=== PATIENT | female | born 1975 | race Caucasian/White ===

== ENCOUNTER 2019-05-31 20:44 | Inpatient (IN) | payer OTHER ==
[~2019-05-31] VITALS: Ht 160 cm; Wt 93.4 kg
[~2019-05-31 20:44] MED LIST: ANTIVERT25 MG PO; BAYER CHEWABLE81 MG PO; GABAPENTIN 100100 MG PO; HYDROXYCHLOROQ200 M1 PO; LOPRESSOR25 PO; LOVASTATIN 20 M20 MG PO; NITROGLYCERIN0.4 MG SUBLING; NORCO 5-325 TA1 EACH PO; NORVASC5 MG PO; PLAVIX 75 MG TA75 M1 PO; TYLENOL325 MG PO; VIIBRYD10 MG PO; WELLBUTRIN SR150 MG PO; XANAX 0.5 MG0.5 MG PO
[2019-05-31 20:46] VITALS: BP 156/87
[2019-05-31 21:20] LABS: URINE BILIRUBIN NEGATIVE (Negative); URINE BLOOD 1+ (Negative); URINE CLARITY CLEAR; URINE COLOR YELLOW; URINE GLUCOSE-RANDOM* NEGATIVE (Negative); URINE KETONES NEGATIVE (Negative); URINE LEUKOCYTES-REFLEX TRACE (Negative); URINE NITRITE-REFLEX NEGATIVE (Negative); URINE PROTEIN (DIPSTICK) 2+ (Negative); URINE UROBILINOGEN 0.2 E.U./dl (0.2-1.0)
[2019-05-31 21:21] LABS: BASOPHILS 0.5 % (0.0-2.0); EOSINOPHILS 1.3 % (0.0-3.0); HEMATOCRIT 32.5 % (37.0-47.0); HEMOGLOBIN 10.4 gm/dL (12.0-15.0); LYMPHOCYTES 5.6 % (24.0-44.0); MCHC 31.8 g/dL (28.0-37.0); MCV 97.5 fL (80.0-100.0); PLATELET COUNT 147 thou/uL (150-400); POLYS 85.6 % (36.0-66.0); RBC 3.34 mil/uL (4.20-5.00); RDW 13.4 % (10.5-14.5); WBC 12.8 thou/uL (4.0-11.0)
[2019-05-31 21:30] LABS: SQUAMOUS >10 Many /LPF (0-3)
[2019-05-31 21:31] LABS: BACTERIA-REFLEX 1-9 Few /HPF (None Seen); CRYSTALS None Seen /LPF (None Seen); URINE RBC 0-2 Rare /HPF (0-2); URINE WBC-REFLEX None Seen /HPF (0-5)
[2019-05-31 21:42] LABS: ANION GAP 13 mmol/L (7-16); BUN 62 mg/dL (7-18); CALCIUM 9.4 mg/dL (8.5-10.1); CHLORIDE 107 mmol/L (98-107); CO2 16 mmol/L (21-32); CREATININE 6.1 mg/dL (0.6-1.0); GLUCOSE 114 mg/dL (74-106); POTASSIUM 5.2 mmol/L (3.5-5.1); SODIUM 136 mmol/L (136-145)
[2019-05-31 21:52] LABS: ALBUMIN 2.9 g/dL (3.4-5.0); LIPASE 51 U/L (73-393); SGOT 9 U/L (15-37); SGPT 11 U/L (30-65); TOTAL BILIRUBIN 0.3 mg/dL (<0.1-1.0); TOTAL PROTEIN 7.3 g/dL (6.4-8.2); TROPONIN-I <0.06 ng/mL (<0.06)
[2019-05-31 23:59] LABS: COLOR COLORLESS; SOURCE PERITONEAL; TOTAL VOLUME 3 mL
[2019-06-01] LABS: CLARITY HAZY
[2019-06-01 00:22] LABS: BF NUCLEATED CELLS 1853; BF RBC 1141
[2019-06-01 00:28] VITALS: BP 111/65
[2019-06-01 00:58] LABS: BF MACROPHAGE 2; BF NEUTROPHILS 96
[2019-06-01] MEDS ORDERED: TOPROL XL100 MG PO (00:58)
[2019-06-01] MEDS ORDERED: CHANTIX1 MG PO (01:00)
[2019-06-01] MEDS ORDERED: NEURONTIN100 MG PO (01:00)
[2019-06-01 01:01] VITALS: BP 135/79
[2019-06-01] MEDS ORDERED: WELLBUTRIN XL150 MG PO (01:01)
[2019-06-01 01:12] VITALS: BP 148/83
[2019-06-01] MEDS ORDERED: HYDROCODON-ACE1 EAC7 PO (01:54)
[2019-06-01] MEDS ORDERED: CLONAZEPAM 0.50.5 M1 PO (01:57)
--- NOTE | 2019-06-01 03:50 | NUR ---
Arrived from ER around 0110. Medicated for pain with some relief. IV fluids started. Denies any any nausea or vomiting. Peritoneal dialysis cath in place.Low grade temp.IV fluids infusing. Will continue to monitor.
[2019-06-01 04:19] LABS: HEMATOCRIT 31.5 % (37.0-47.0); MCH 31.6 pg (26.0-34.0); MCHC 31.7 g/dL (28.0-37.0); MCV 99.7 fL (80.0-100.0); RBC 3.16 mil/uL (4.20-5.00); RDW 13.8 % (10.5-14.5); WBC 10.6 thou/uL (4.0-11.0)
[2019-06-01 04:32] LABS: ALBUMIN 2.5 g/dL (3.4-5.0); CALCIUM 8.6 mg/dL (8.5-10.1); CREATININE 5.2 mg/dL (0.6-1.0); TOTAL BILIRUBIN 0.3 mg/dL (<0.1-1.0); TOTAL PROTEIN 6.8 g/dL (6.4-8.2)
[2019-06-01 04:37] LABS: POTASSIUM 6.4 mmol/L (3.5-5.1)
[2019-06-01 04:45] VITALS: BP 112/68
--- NOTE | 2019-06-01 04:45 | NUR ---
DARREL Flores CALLED TO IVELISSE PELAEZ, SHE STATED TO CONTACT RENAL PT NURSE NOTIFIED.
--- NOTE | 2019-06-01 04:55 | NUR ---
Renal consult called to answering service this am and also critical K 6.4 Left a message to answering service , waiting for renal drTarik to call back.
--- NOTE | 2019-06-01 06:28 | NUR ---
Dr. Paul came in to see pt. this am. IV fluids dc'd. He is aware of elevated K level and will put in order.
[2019-06-01 07:31] VITALS: BP 94/54
--- NOTE | 2019-06-01 08:13 | EKG ---
[address] [address] ELECTROCARDIOGRAM REPORT Name: ADAM LABOY Room #: 357-P ADM IN M.R.#: [id number] Admission: 05/31/19 Attend Phys: Gael Painting Discharge: Date of : 77 Report #: [id number] THIS REPORT FOR: //name// 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 : 1975 Requested By: Brian Taylor Order Number: [id number] MD: Brent Powell Measurements Intervals Serafina Rate: 122 P: 36 VT: 122 QRS: 22 QRSD: 78 T: 73 QT: 296 QTc: 422 Interpretive Statements Sinus tachycardia Probable left atrial enlargement Minimal ST depression, lateral leads Compared to ECG 11/22/2013 08:03:20 ST (T wave) deviation now present Sinus rhythm no longer present Myocardial infarct finding no longer present Electronically Signed On 06-01-2019 8:13:44 ACID CONCENTRATOR by Brent Powell [email or web address] <ELECTRONICALLY SIGNED> By: Brent Powell MD 06/01/19 0813 2100 99 Brent Powell MD /EPI
[2019-06-01 08:56] LABS: APTT 35.2 Seconds (24.5-32.8); INR 1.1; PROTIME 11.8 Seconds (9.3-11.4)
[2019-06-01 09:13] LABS: SOURCE ABDOMINAL
[2019-06-01 12:06] LABS: BODY FLUID AMYLASE < 3 U/L (()); BODY FLUID GLUCOSE < 2 mg/dL (()); BODY FLUID PROTEIN < 0.2 g/dL (())
--- NOTE | 2019-06-01 12:14 | NUR ---
INITIAL ASSESSMENT: PRIMO reviewed chart and spoke with nursing and attending physician. Pt was admitted from home due to CKD/sepsis. Pt has done peritoneal dialysis at home in the past. Order for temporary dialysis catheter to be placed and for pt to have dialysis later today or tomorrow. PRIMO met with pt at bedside. Introduced role of SW. Pt is alert/orientated x 4. Pt reports she lives at home with her adult children. Prior to admission, pt was independent with ADLs. No use of DME. Pt has done peritoneal dialysis in the past, but has not had dialysis for the past two months. Pt is connected with the [facility] clinic and sees the renal physician and SKEIN DRIER at the clinic. PRIMO spoke with at the dialysis clinic to provide update. confirms that pt is established with their clinic. PRIMO will fax clinical updates when available. [facility] will need clinical info and discharge orders/summary when pt is discharged home. PRIMO is following to assist as needed with discharge planning.
[2019-06-01 13:09] LABS: TOTAL VOLUME 62 mL
[2019-06-01 13:10] LABS: CLARITY TURBID; COLOR LIGHT YELLOW; SOURCE ABDOMINAL
[2019-06-01 13:33] LABS: BF NUCLEATED CELLS 39227; BF RBC 7808
[2019-06-01 14:22] LABS: BF MACROPHAGE 0; BF NEUTROPHILS 98
--- NOTE | 2019-06-01 18:21 | NUR ---
Assumed care approx. 0700 this AM. Peritoneal dialysis attempted this AM and unsuccessful. Temp dialysis cath placed today which patient has been very emotional about; pt is concerned HD will be permanent and not temporary. Importance of the procedure explained and comfort provided to the patient. Pt will be NPO at midnight to remove PD cath tomorrow per Dr. Mancia. Dr. Mancia said he will do a consultation with the patient in the AM. Friend of the patient at bedside for support. Hemodialysis currently in process. IV abx to start tonight. Pt progressing toward plan of care.
[2019-06-01 19:30] VITALS: BP 110/61
[2019-06-02 04:00] VITALS: BP 107/68
--- NOTE | 2019-06-02 04:23 | NUR ---
Pt. very emotional at times. Emotional support given.Medicated for pain with some relief. Afebrile.No nausea or vomiting. Pt. 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 Kept NPO for PD removal today. Right IJ temporary dialysis cath in place. Ambulated to bathroom with steady gait. Will continue to monitor.
[2019-06-02 05:38] LABS: ALBUMIN 2.5 g/dL (3.4-5.0); CALCIUM 8.9 mg/dL (8.5-10.1); PHOSPHORUS 4.6 mg/dL (2.5-4.9)
[2019-06-02 07:15] VITALS: BP 110/63
[2019-06-02 08:07] LABS: HEP B SURFACE Ab(ANTI-HBS Reactive (()); HEPATITIS B SURFACE AG Negative (Negative)
[2019-06-02 09:11] LABS: SOURCE ABDOMINAL
--- NOTE | 2019-06-02 14:39 | NUR ---
SW reviewed chart and spoke with nursing and attending physician. Pt had temporary dialysis catheter placed yesterday and had dialysis. Pt's PD catheter to be removed today. PRIMO is following to assist as needed with discharge planning.
--- NOTE | 2019-06-02 15:07 | PATH ---
[facility] [address] [place] [address] PATHOLOGY RPT PROCEDURE Name: ADAM LABOY Room #: 357-P ADM IN M.R.#: [id number] Admission: 05/31/19 Date of : 77 Discharge: Report #: [id number] Path Case #: [id number] Note [facility] Accession Number: [id number] TESTS RESULT FLAG UNITS REF RANGE LAB Clinician Provided Cytology Information No. of containers..01 Other (Miscellaneous) Source: 01 ABDOMINAL FLUID DIAGNOSIS: 02 ABDOMINAL FLUID NEGATIVE FOR MALIGNANT CELLS. REACTIVE MESOTHELIAL CELLS ARE PRESENT. THIS INTERPRETATION INCLUDES EVALUATION OF A CELL BLOCK. MARKED ACUTE INFLAMMATION CONSISTENT WITH AN EXUDATE. Pathologist ICD10: 02 N18.9 Signed out by: 02 Delia Joseph MD, Pathologist NPI- [id number] Performed by: Tawana Arambula Program Attendant ([facility]) Gross description: 01 25ML, YELLOW, CLOUDY /LCS 06/30/1840 0000 Local FLAG LEGEND: L-Low Normal,H-High Normal,LL-Alert Low,HH-Alert High <-Panic Low,>-Panic High,A-Abnormal,AA-Critical Abnormal Performed at: [address] [place] [address] Kiran Jimenes MD, [address] [address] Delia Joseph MD, Specimen Comment: A courtesy copy of this report has been sent to [phone] Specimen Comment: Report sent to Performed at: [address], [place], [place] [id number] MD Kiran Jimenes MD Phone: [phone]
[2019-06-02 15:11] VITALS: BP 128/81
--- NOTE | 2019-06-02 16:16 | NUR ---
ASSUMED CARE OF PT AT 0700. PT AOX4 IN NO ACUTE DISTRESS. C/O PAIN TO LLQ - WELL CONTROLLED WITH CURRENT MED REGIMEN. NPO FOR PERIOTENEAL CATH REMOVAL THIS AFTERNOON - SITE DRESSED. UP AD WANDY W/ STEADY GAIT. VITALS STABLE. CALLS OUT APPROPRIATELY. PT PROGRESSING TOWARD POC GOALS.
[2019-06-02 20:11] VITALS: BP 127/78
[2019-06-03 04:18] VITALS: BP 141/80
--- NOTE | 2019-06-03 04:18 | NUR ---
Pt. slept well during the night. Medicated for pain with good relief and verbalized it is not excruciating as it was before. Left PD site covered with gauze and transparent dressing. Afebrile. Up ad ib in room with steady gait. Denies any concern at this time. Making progress towards care plan goals.
[2019-06-03 06:03] LABS: HEMATOCRIT 26.9 % (37.0-47.0); HEMOGLOBIN 8.8 gm/dL (12.0-15.0); MCH 31.6 pg (26.0-34.0); MCHC 32.7 g/dL (28.0-37.0); MCV 96.6 fL (80.0-100.0); RBC 2.78 mil/uL (4.20-5.00); RDW 13.2 % (10.5-14.5); WBC 4.9 thou/uL (4.0-11.0)
[2019-06-03 06:28] LABS: ALBUMIN 2.4 g/dL (3.4-5.0); CALCIUM 9.5 mg/dL (8.5-10.1); POTASSIUM 4.8 mmol/L (3.5-5.1); TOTAL BILIRUBIN 0.2 mg/dL (<0.1-1.0); TOTAL PROTEIN 6.8 g/dL (6.4-8.2)
[2019-06-03 07:22] VITALS: BP 135/81
--- NOTE | 2019-06-03 16:26 | NUR ---
PRIMO reviewed chart and spoke with nursing and attending physician. Pt to have tunneled dialysis catheter placed and will need outpatient hemodialysis. PRIMO spoke with Blaire at the [facility] to provide update. Per Blaire, they are able to accept pt to their clinic. Pt had chosen to stop dialysis about two months ago. Pt's PD catheter was removed yesterday. [place] does dialysis M-W-F. PRIMO met with pt at bedside to discuss outpt hemodialysis. Pt is agreeable with plan. Pt does work several jobs. PRIMO discussed possible schedule and location. Pt would like to use the [place] location and is aware that it will be M-W-F. No preference of time. PRIMO faxed clinical info to central intake at [facility] for review. PRIMO is following to assist as needed with discharge planning.
--- NOTE | 2019-06-03 17:21 | NUR ---
PT CARE ASSUMED APPROX 0700. ASSESSMENT CHARTED. PT DENIES SOA. REPORTS ADEQUATE PAIN MANAGEMENT OF INTERMITTENT ABD PAIN. VSS. UP WITH STEADY GAIT. TOELRATING POC. DENIES QUESTIONS OR CONCERNS REGARDING POC. TOLERATED HD. WOUND CARE TO LEFT ABD DONE PER ORDER. NO DISTRESS NOTED.
[2019-06-04 04:10] VITALS: BP 127/77
--- NOTE | 2019-06-04 04:15 | NUR ---
ASSUMED CARE OF PT AT 1900. A&Ox4, SAD AND DISTRESSED ABOUT WORK. C/O ABD PAIN 1X, STATED IT WAS MORE AFTER ABDOMINAL DRESSING CHANGE COMPLETED DURING THE DAY. PAIN MEDS GIVEN 1X THUS FAR, PT ABLE TO SLEEP. C/P NAUSEA 1X, ZOFRAN GIVEN, ABLE TO SLEEP. ABD DRESSING HAS BEEN C/D/I, NO DRAINAGE OBSERVED. STEADY GAIT, UP TO BR AD WANDY. PROGRESSING TOWARDS POC GOALS.
[2019-06-04 07:21] VITALS: BP 140/96
[2019-06-04 14:11] LABS: BODY FLUID ALBUMIN 1.3 g/dL (Not Estab.); BODY FLUID AMYLASE 8 U/L (()); BODY FLUID GLUCOSE 25 mg/dL (()); BODY FLUID LDH 560 IU/L (()); BODY FLUID PROTEIN 2.5 g/dL (())
[2019-06-04 15:23] VITALS: BP 150/91
--- NOTE | 2019-06-04 15:43 | NUR ---
SW reviewed chart and spoke with nursing and attending physician. Pt to have tunneled dialysis catheter placed tomorrow. SW spoke with central intake at [facility] to establish pt's outpatient dialysis schedule. Info received and in process. Hep B labs ordered to send to intake when available. Awaiting chair time when finalized. SW is following to assist as needed with discharge planning.
--- NOTE | 2019-06-04 18:36 | NUR ---
Patient has been in a lot of pain through the day and pain is somewhat controlled by meds. she does seem depressed sometimes. spent time in room talking to patient. it did help. went and had dialysis cath placed. tolerated well. wound dressing to RLQ changed. will cont with plan of care.
[2019-06-04 19:09] VITALS: BP 129/84
[2019-06-05 04:05] VITALS: BP 139/81
[2019-06-05 07:07] VITALS: BP 114/83
--- NOTE | 2019-06-05 07:50 | NUR ---
ASSUMED CARE AT 1900, ASSESSMENT COMPLETED. PT C/O HIGH LEVEL OF PAIN IN ABD AND AT LEFT CHEST TESSEO SITE; GAVE OXY TWICE OVERNIGHT, PT DID NOT ASK FOR ANY IV PAIN MEDS. PT DENIED NAUSEA OR SOB, SLEPT WELL OVERNIGHT. DIALYSIS THIS AM, THEN PLANNED D/C HOME TODAY. NO OTHER CONCERNS, SHIFT REPORT GIVEN AT 0700.
--- NOTE | 2019-06-05 14:20 | NUR ---
DISCHARGE PLANNING. DISCHARGE TO HOME WITH OUTPATIENT DIALYSIS AND IV ABX INFUSION. PATIENT REFERRAL FAXED TO [facility]. UNIT SW AWARE. FOLLOWING.
[2019-06-05] MEDS ORDERED: UNASYN 3 GM VIAL3 G1 IV (14:37)
--- NOTE | 2019-06-05 14:43 | NUR ---
DISCHARGE NOTE: PRIMO reviewed chart and spoke with nursing and attending physician. Pt is medically stable for discharge home today. Pt had dialysis earlier today. Pt will need home IV Abx: unasyn 3gm daily for 7 days. PRIMO met with pt at bedside to discuss discharge plan. Pt states she has done home infusion in the past, but unable to recall name of provider. SW discussed need for home IV abx for 7 days. Pt is agreeable with plan and no preference voiced of provider. PRIMO spoke with Raegan in intake at [facility] who confirmed that pt's chair time is M-W-F at 1400. Pt will need to arrive at 1330 on her first dialysis on Saturday, 06/08 to do intake paperwork. c4 planner faxed info to [facility] for review. PRIMO contacted [facility] liaison who will meet with pt. Insurance coverage to be verified. Discharge orders completed. Contact info for [facility] and new dialysis schedule placed in pt's discharge summary. Pt will have transportation home when discharged. PRIMO is following to finalize discharge.
[2019-06-05 14:48] VITALS: BP 114/83
[2019-06-05 15:22] VITALS: BP 140/88
--- NOTE | 2019-06-05 17:49 | NUR ---
ASSUMED PATIENT CARE AT 0700. A/O . TOLERATED HD. DC TO HOME MOW.
--- NOTE | 2019-06-07 08:35 | HC ---
[facility] [place] [address] CONSULTATION Name: ADAM LABOY Room #: 357-P [facility] IN M.R.#: [id number] Admission: 05/31/19 Attend Phys: Celestine Felix MD Discharge: 06/05/19 Date of : 77 Report #: [id number] THIS REPORT FOR: //name// CC: Natasha Painting REASON FOR CONSULTATION: End-stage renal disease. REASON FOR PRESENTATION: Abdominal pain. HISTORY OF PRESENT ILLNESS: This is a 43-year-old with past medical history of end-stage renal disease, was maintained on peritoneal dialysis. She is also known to have diabetes mellitus and hypertension, coronary artery disease with a stent to the LAD. Her end-stage renal disease was proven to be due to sarcoidosis. She was followed by [facility]. She had stopped peritoneal dialysis based on her Nephrology recommendation as stated. She has not used her catheter for the last 2 months. She presented to the Emergency Room complaining that she is having abdominal pain with drainage from around the PD catheter. She also reported to nausea and occasional vomiting. She had no fever. Laboratory values were consistent with hyperkalemia and elevated creatinine with an estimated GFR of around 8. Initial PD fluids were consistent with what seems to be peritonitis for which the patient was admitted. PAST MEDICAL HISTORY: 1. Coronary artery disease. 2. Hypertension. 3. End-stage renal disease. 4. Peritoneal dialysis catheter insertion. 5. Sarcoidosis. 6. Post-kidney biopsy. ALLERGIES: None. MEDICATIONS: 1. Gabapentin. 2. Amlodipine. 3. Aspirin. 4. Metoprolol. SOCIAL HISTORY: Current every day smoker. She denies drug or alcohol abuse. REVIEW OF SYSTEMS: CONSTITUTIONAL: Significant for fever and occasional chills. CARDIOVASCULAR: No chest pain or palpitation. PULMONARY: No cough or hemoptysis. GASTROINTESTINAL: As per the history of present illness. GENITOURINARY: No frequency, no urgency. [facility] [place] [address] [place] [address] CONSULTATION Name: ADAM LBAOY Room #: 357-[facility].#: [id number] Admission: 05/31/19 Attend Phys: Celestine Felix MD Discharge: 06/05/19 Date of : 77 Report #: [id number] NEUROLOGICAL: No weakness, no seizure. HEMATOLOGICAL: No easy bruisability. No epistaxis. PHYSICAL EXAMINATION: GENERAL: She is alert, oriented, in no apparent distress. VITAL SIGNS: Blood pressure was 111/65. HEAD AND NECK: No jugular venous distention. CHEST: No crackles. CARDIOVASCULAR: No rub detected. ABDOMEN: Soft with slight tenderness. PD catheter in place. LOWER EXTREMITIES: No edema. LABORATORY VALUES: Reviewed. Sodium is 136, potassium is 5.2, chloride is 107, carbon dioxide of 16, BUN is 62, creatinine is 6.1. White blood cell count is 12.8. IMPRESSION AND PLAN: 1. Peritonitis in a patient who is maintained on peritoneal dialysis. Unfortunately, the patient's catheter has not been functioning and not being utilized for the last 2 months. We attempted to use this catheter to initiate intraperitoneal antibiotic; however, this has not succeeded. This was discussed with the patient. She was empirically covered with systemic antibiotics. The patient will need to be converted to hemodialysis. We will ask general surgeon to remove the peritoneal dialysis catheter. 2. Discussed with the patient that her current kidney function tests would not allow her to stay off dialysis and she will need to be permanently on dialysis. <ELECTRONICALLY SIGNED> By: Jhonatan Ortiz MD 06/07/19 0835 1304 2059 Jhonatan Ortiz MD /nt
== END 2019-06-05 17:49 | disposition home or self-care (01) | DRG 919 ==
LOC: ER 20:44 → EROBS 22:20 → 3W 22:20 → ENTRNSPT 06-05 17:44 → 3W 06-05 17:49
PROVIDERS: Emergency Medicine; Hospitalist; Nurse Practitioner; ADMIT Internal Medicine
PROC: 3E1M38Z Irrigation of Peritoneal Cavity using Irrigating Substance, Percutaneous Approach (ICD-10-PCS; principal; 2019-05-31)
PROC: 02HV33Z Insertion of Infusion Device into Superior Vena Cava, Percutaneous Approach (ICD-10-PCS; 2019-06-01)
PROC: 0W9G3ZZ Drainage of Peritoneal Cavity, Percutaneous Approach (ICD-10-PCS; 2019-06-01)
PROC: 3E1M39Z Irrigation of Peritoneal Cavity using Dialysate, Percutaneous Approach (ICD-10-PCS; 2019-06-01)
PROC: B548ZZA Ultrasonography of Superior Vena Cava, Guidance (ICD-10-PCS; 2019-06-01)
PROC: B5181ZA Fluoroscopy of Superior Vena Cava using Low Osmolar Contrast, Guidance (ICD-10-PCS; 2019-06-01)
PROC: 0WPGX3Z Removal of Infusion Device from Peritoneal Cavity, External Approach (ICD-10-PCS; 2019-06-02)
PROC: 0JH63XZ Insertion of Tunneled Vascular Access Device into Chest Subcutaneous Tissue and Fascia, Percutaneous Approach (ICD-10-PCS; 2019-06-04)
PROC: 02H633Z Insertion of Infusion Device into Right Atrium, Percutaneous Approach (ICD-10-PCS; 2019-06-04)
PROC: B548ZZA Ultrasonography of Superior Vena Cava, Guidance (ICD-10-PCS; 2019-06-04)
PROC: B5181ZA Fluoroscopy of Superior Vena Cava using Low Osmolar Contrast, Guidance (ICD-10-PCS; 2019-06-04)
PROC: 5A1D70Z Performance of Urinary Filtration, Intermittent, Less than 6 Hours Per Day (ICD-10-PCS; 2019-06-05)
DX: T85.71XA Infection and inflammatory reaction due to peritoneal dialysis catheter, initial encounter (principal); K65.2 Spontaneous bacterial peritonitis; N18.6 End stage renal disease; A41.1 Sepsis due to other specified staphylococcus; A41.81 Sepsis due to Enterococcus; N17.9 Acute kidney failure, unspecified; I12.0 Hypertensive chronic kidney disease with stage 5 chronic kidney disease or end stage renal disease; T85.611A Breakdown (mechanical) of intraperitoneal dialysis catheter, initial encounter; D64.9 Anemia, unspecified; I25.10 Atherosclerotic heart disease of native coronary artery without angina pectoris; F17.210 Nicotine dependence, cigarettes, uncomplicated; E87.5 Hyperkalemia; D86.9 Sarcoidosis, unspecified; F41.1 Generalized anxiety disorder; F32.9 Major depressive disorder, single episode, unspecified; Y84.1 Kidney dialysis as the cause of abnormal reaction of the patient, or of later complication, without mention of misadventure at the time of the procedure; B95.2 Enterococcus as the cause of diseases classified elsewhere; B95.7 Other staphylococcus as the cause of diseases classified elsewhere; E66.01 Morbid (severe) obesity due to excess calories; Z95.5 Presence of coronary angioplasty implant and graft; Y92.098 Other place in other non-institutional residence as the place of occurrence of the external cause; Z79.82 Long term (current) use of aspirin; Z79.899 Other long term (current) drug therapy; Z23 Encounter for immunization; Z99.2 Dependence on renal dialysis
CPT/HCPCS: 10879; 32100; 33000; 50010; 50101; 50386; 50403; 51412; 56525; 62110; 62900; 70005

== ENCOUNTER → 2019-06-09 | Outpatient (CLI) | payer OTHER ==
[~2019-06-09] MED LIST changes: +CHANTIX1 MG PO; +CLONAZEPAM 0.50.5 M1 PO; +HYDROCODON-ACE1 EAC7 PO; +NEURONTIN100 MG PO; +TOPROL XL100 MG PO; +UNASYN 3 GM VIAL3 G1 IV; +WELLBUTRIN XL150 MG PO
[2019-06-09 10:38] VITALS: BP 144/93
[2019-06-09 11:13] LABS: HEMATOCRIT 31.5 % (37.0-47.0); HEMOGLOBIN 10.2 gm/dL (12.0-15.0); MCHC 32.3 g/dL (28.0-37.0); RBC 3.28 mil/uL (4.20-5.00); RDW 13.2 % (10.5-14.5); WBC 8.2 thou/uL (4.0-11.0)
[2019-06-09 11:28] LABS: ALBUMIN 2.8 g/dL (3.4-5.0); CREATININE 3.7 mg/dL (0.6-1.0); POTASSIUM 3.8 mmol/L (3.5-5.1); TOTAL BILIRUBIN 0.3 mg/dL (<0.1-1.0); TOTAL PROTEIN 7.4 g/dL (6.4-8.2)
--- NOTE | 2019-06-09 12:32 | NUR ---
PT IN FOR
--- NOTE | 2019-06-09 12:53 | NUR ---
PT IN OUTPT INFUSION TO SEE DR JIMENEZ. SHE MISSED ALL OF HER IV ABX INFUSIONS THAT WERE ORDERED OUTPT SINCE SATURDAY. PT STATES SHE DIDN'T FEEL WELL SO SHE DID NOT GO IN FOR HER MEDS. SHE HAS AN HD CATH IN THE LT CHEST AND WENT TO DIALYSIS YESTERDAY BUT DOES NOT KNOW WHEN SHE WILL HAVE ID DONE AGAIN. DSG CHG DONE ON LT CHEST THE DRESSING WAS NOT OCCLUSIVE AND NO BIOPATCH ON. USED STERILE TECHNIQUE. LABS DRAWN AND DR JIMENEZ IN TO VISIT PT AND REVIEWED HER NEED TO STAY COMPLIANT WITH HER PO AUGMENTIN. DSG ON BELLY WOUND CDI AND [facility] INTACT. PT IS TO MAKE AN APPT WITH DR LOUIS FOR F/U. DR SOTO WITH FOR F/U AND TO CALL DR JIMENEZ FOR ANY ISSUES. PT WAS AGREEABLE AND SIGNED DISCHARGE PLAN AND TOOK A COPY WITH HER.
== END ==
LOC: OPONC 06-08 09:03
PROVIDERS: Specialist
DX: K65.2 Spontaneous bacterial peritonitis (principal); B95.2 Enterococcus as the cause of diseases classified elsewhere; B95.62 Methicillin resistant Staphylococcus aureus infection as the cause of diseases classified elsewhere
CPT/HCPCS: 91018